=== PATIENT | male | born 1960 | race Caucasian/White ===

== ENCOUNTER 2019-02-01 10:39 | Observation (INO) ==
[2019-02-01] MEDS ORDERED: ZOFRAN INJ 4 MG VIAL IVP PRN (12:16)
[2019-02-01] MEDS ORDERED: PHENERGAN INJ 25 MG IM PRN (12:16)
[2019-02-01] MEDS ORDERED: NS 1000 ML 1,000 ML ONE (12:19)
[2019-02-01] MEDS ORDERED: NICOTINE PATCH ONE (12:19)
[2019-02-01] MEDS ORDERED: PEPCID 20 MG IV PREMIX* 20 MG/50 ML BAG ONE (12:19)
[2019-02-01] MEDS ORDERED: PROTONIX INJ 40 MG VIAL ONE (12:20)
[2019-02-01] MEDS: NICOTINE PATCH TD SCH (12:45)
[2019-02-01] MEDS: PROTONIX INJ 40 MG VIAL IVP SCH ×2 (12:46→20:24)
[2019-02-01] MEDS: NS 1000 ML 1,000 ML IV SCH ×2 (12:46→20:24)
[2019-02-01] MEDS: PEPCID 20 MG IV PREMIX* 20 MG/50 ML BAG IV SCH ×2 (12:46→20:25)
[2019-02-01] MEDS ORDERED: ATIVAN TAB 0.5 MG ONE (12:49)
[2019-02-01] MEDS: ATIVAN TAB 0.5 MG PO PRN ×3 (12:52→23:34)
[2019-02-01 13:06] VITALS: BMI 30.4
[2019-02-01 13:17] LABS: BASOPHILS # (AUTO) 0.1 X10^3/uL (0.0-0.1); BASOPHILS % (AUTO) 0.6 % (0.2-1.0); EOSINOPHILS # (AUTO) 0.1 x10^3/uL (0.0-0.2); EOSINOPHILS % (AUTO) 0.6 % (0.9-2.9); HEMATOCRIT 48.5 % (42.0-54.0); HEMOGLOBIN 16.9 g/dL (13.5-18.0); LYMPHOCYTES # (AUTO) 1.4 X10^3/uL (1.3-2.9); LYMPHOCYTES % (AUTO) 11.6 % (21.0-51.0); MEAN CORPUSCULAR HEMOGLOBIN 33.1 pg (27.0-34.0); MEAN CORPUSCULAR HGB CONC 34.8 g/dL (33.0-35.0); MEAN PLATELET VOLUME 9.6 fL (7.4-11.0); MONOCYTES # (AUTO) 0.9 x10^3/uL (0.3-0.8); MONOCYTES % (AUTO) 7.4 % (0.0-13.0); NEUTROPHILS # (AUTO) 9.8 x10^3/uL (2.2-4.8); NEUTROPHILS % (AUTO) 79.8 % (42.0-75.0); PLATELET COUNT 196 X10^3/uL (150.0-450.0); RED BLOOD COUNT 5.11 X10^6/uL (4.7-6.0); RED CELL DISTRIBUTION WIDTH 12.5 % (11.6-16.5); WHITE BLOOD COUNT 12.3 X10^3/uL (3.6-10.0)
[2019-02-01 13:25] LABS: ALANINE AMINOTRANSFERASE 40 Units/L (12-78); ALBUMIN 3.5 g/dL (3.4-5.0); ALKALINE PHOSPHATASE 116 Units/L (46-116); ASPARTATE AMINO TRANSFERASE 31 Units/L (15-37); BLOOD UREA NITROGEN 17 mg/dL (7-18); CALCIUM 9.1 mg/dL (8.5-10.1); CARBON DIOXIDE 26.8 mmol/L (21-32); CHLORIDE 99 mmol/L (98-107); COR NA(FOR HYPERGLY) 138 mmol/L (136-145); CREATININE 1.48 mg/dL (0.70-1.30); SODIUM 137 mmol/L (136-145); TOTAL PROTEIN 7.8 g/dL (6.4-8.2); eGFR NON BLACK RACES 52 (>60)
[2019-02-01 13:55] LABS: IRON 161 ug/dL (50-175)
[2019-02-01 13:56] LABS: ERYTHROCYTE SEDIMENTATION RATE 9 MM/HOUR (0-15)
[2019-02-01] MEDS ORDERED: METHYLPHENIDATE HCL 36 MG PO SCH (14:00)
[2019-02-01] MEDS ORDERED: METAXALONE 800 MG PO SCH (14:00)
[2019-02-01] MEDS: WELLBUTRIN SR 150 MG (BID) PO SCH ×2 (14:02→20:30)
[2019-02-01] MEDS: BENICAR TAB 40 MG PO SCH (14:43)
[2019-02-01] MEDS: HYDROCHLOROTHIAZIDE 12.5 MG CAP PO SCH (14:43)
[2019-02-01] MEDS ORDERED: HYDROCHLOROTHIAZIDE 12.5 MG CAP PO SCH (15:00)
[2019-02-01] MEDS ORDERED: BENICAR TAB 40 MG PO SCH (15:00)
--- NOTE | 2019-02-01 15:09 | RAD ---
History: Acute diffuse abdominal pain Study: KUB Comparison: None Findings: The bowel gas pattern is unremarkable. No abnormal calcification is demonstrated. No significant bony abnormality is demonstrated. Impression: Negative Reported By:
[2019-02-01 16:09] LABS: BILIRUBIN,URINE 1+ (NEGATIVE); BLOOD/HEMOGLOBIN,URINE NEGATIVE (NEGATIVE); GLUCOSE, URINE NEGATIVE (NEGATIVE); KETONES,URINE 1+ (NEGATIVE); LEUKOCYTE ESTERASE ,URINE 1+ (NEGATIVE); NITRITES,URINE NEGATIVE (NEGATIVE); PROTEIN,URINE 2+ (NEGATIVE); UROBILINOGEN,URINE NORMAL (NORMAL)
[2019-02-01] MEDS ORDERED: MIRALAX POWDER (255 GRAMS BTL) PO NR (16:11)
[2019-02-01] MEDS ORDERED: DULCOLAX SUPPOSITORY 10 MG RECTAL ONE (16:12)
[2019-02-01 16:16] LABS: APPEARANCE,URINE SLIGHTLY HAZY (CLEAR); COLOR,URINE AMBER (YELLOW)
[2019-02-01 16:17] LABS: AMORPHOUS SEDIMENT,UR 1+ /HPF (NEGATIVE); BACTERIA,URINE TRACE /HPF (NEGATIVE); HYALINE CASTS, URINE RARE /LPF (NEGATIVE); SQUAMOUS EPITHELIAL CELL,UR RARE /HPF (NEGATIVE)
--- NOTE | 2019-02-01 16:52 | DR.CONSULT ---
Consult - Consultation for Day of: Date: 02/01/19 - Chief Complaint Chief Complaint: GI Bleed, Patient with complaints of hematochezia, melena and LLQ pain. - History of Present Illness History of Present Illness: Patient is a 58yo male who was referred fot GI Bleed, Patient with complaints of hematochezia that went on for 1 week stopped on friday, melenax2-3 days and LLQ pain. Patient denies dysphagia, dyspepsia, nausea, vomiting, constipation and diarrhea. Hgb 16.9, Hct 48.5, BUN 17, Creatinine 1.48, CRP 8.0. Patient states he has never had a colonoscopy or EGD. Admits to drinking about a 6pack a day as well as wine and liquor every night. Smokes 1PPD. - Past Medical History Past Medical History: Anxiety, Depression, Dyslipidemia, Hypertension Additional Medical History: Hyperlipidemia - Past Surgical History Surgical History: Ortho Surgery, Tonsillectomy Additional Surgical History: Right knee, Left shoulder and Neck surgery - Family History Family Medical History: Diabetes Mellitus, Cancer, Sudden Cardiac - Social History Does patient currently use any type of tobacco product: Yes Have you used tobacco products in the last 12 months: Yes Type of Tobacco Use: Cigarettes How many years tobacco product used: 46 Packs per day or dips/chews per day: 1 Does any household member use tobacco: No Alcohol Use: DAILY (6pack a day, wine and liqour every night as well) Drug Use: None - Medications Home Medications: No Known Drug Allergies Allergy (Verified 02/01/19 12:52) CONTINUE taking the following medications budesonide-formoterol [Symbicort] 2 puff INHALATION BID PRN 02/01/19 [History] bupropion HCl 150 mg PO BID 02/01/19 [History] cetirizine [Zyrtec] 10 mg PO DAILY 02/01/19 [History] metaxalone [Skelaxin] 800 mg PO TID 02/01/19 [History] methylphenidate HCl [Concerta] 36 mg PO DAILY 02/01/19 [History] montelukast [Singulair] 10 mg PO HS 02/01/19 [History] olmesartan-hydrochlorothiazide [Benicar HCT] 1 tab PO DAILY 02/01/19 [History] omeprazole magnesium [Prilosec OTC] 20 mg PO DAILY 02/01/19 [History] royal jelly 1,000 mg PO DAILY 02/01/19 [History] sildenafil [Viagra] 100 mg PO PRN PRN 02/01/19 [History] zolpidem 10 mg PO HS 02/01/19 [History] - Review of Systems Gastrointestinal: Abdominal Pain (LLQ), Melena, Hematochezia. denies: Nausea, Vomiting, Diarrhea, Constipation - Physical Exam Vital Signs: Temperature 97.7 F Pulse Rate [Left Brachial] 116 Respiratory Rate 20 Blood Pressure [Left Arm] 131/81 O2 Sat by Pulse Oximetry 94 Oriented: Normal Eyes: Normal Ear: Normal Nose: Normal Throat: Normal Respiratory: Clear Throughout Cardiovascular: Normal Auscultation: Bowel Sounds: Normal Palpation: Normal, Other (no distention). negative: Spleen Enlarged, Liver Enlarged, Mass Pulsatile Tenderness: LLQ, Mild Skin: Normal Musculoskeletal: Normal Psychiatric: Normal Mood Description: Calm Affect: Normal Speech Pattern: Clear, Appropriate - Plan Plan: Assessment. 1. Melena r/o upper GI Bleed. 2. Hematochezia r/o diverticular bleed, no hematochezia since . Plan. 1. EGD in am, Monitor HGb, Transfuse as needed, Protonix IV, Hemoccult. 2. Colon on if pateint remains in hosiptal, if discharged will need to be done as outpatient. Plan reviewed with Dr. Cisneros - Allergies Allergies/Adverse Reactions: Allergies Allergy/AdvReac Type Severity Reaction Status Date / Time No Known Drug Allergies Allergy Verified 02/01/19 12:52
[2019-02-01] MEDS: PULMICORT NEB TX 0.5 MG NEB SCH (20:21)
[2019-02-01] MEDS: SINGULAIR TAB 10 MG PO SCH (20:25)
[2019-02-01] MEDS: AMBIEN PO PRN (20:25)
--- NOTE | 2019-02-01 21:53 | RAD ---
HISTORY: Preoperative exam for EGD Study: Single-view of the chest Comparison: None Findings: The patient is rotated. The cardiac silhouette is unremarkable. The lungs are clear without focal infiltrate or effusion. Postoperative changes of the cervical spine are partially visualized. IMPRESSION: 1. No acute cardiopulmonary disease. Reported By:
[2019-02-02] MEDS: NS 1000 ML 1,000 ML IV SCH ×3 (03:44→20:50)
[2019-02-02 06:02] LABS: ALANINE AMINOTRANSFERASE 33 Units/L (12-78); ALBUMIN 2.9 g/dL (3.4-5.0); ALKALINE PHOSPHATASE 89 Units/L (46-116); ASPARTATE AMINO TRANSFERASE 31 Units/L (15-37); BLOOD UREA NITROGEN 14 mg/dL (7-18); CALCIUM 7.9 mg/dL (8.5-10.1); CARBON DIOXIDE 25.7 mmol/L (21-32); CHLORIDE 102 mmol/L (98-107); COR CA(FOR HYPOALB) 8.8 mg/dL (8.5-10.1); SODIUM 138 mmol/L (136-145); TOTAL PROTEIN 6.4 g/dL (6.4-8.2); eGFR NON BLACK RACES > 60 (>60)
[2019-02-02 06:13] LABS: BASOPHILS # (AUTO) 0.1 X10^3/uL (0.0-0.1); BASOPHILS % (AUTO) 0.8 % (0.2-1.0); EOSINOPHILS # (AUTO) 0.1 x10^3/uL (0.0-0.2); EOSINOPHILS % (AUTO) 1.3 % (0.9-2.9); HEMATOCRIT 40.6 % (42.0-54.0); HEMOGLOBIN 14.1 g/dL (13.5-18.0); LYMPHOCYTES # (AUTO) 1.9 X10^3/uL (1.3-2.9); LYMPHOCYTES % (AUTO) 21.8 % (21.0-51.0); MEAN CORPUSCULAR HEMOGLOBIN 33.2 pg (27.0-34.0); MEAN CORPUSCULAR HGB CONC 34.8 g/dL (33.0-35.0); MEAN CORPUSCULAR VOLUME 95.5 fL (80.0-100.0); MEAN PLATELET VOLUME 9.8 fL (7.4-11.0); MONOCYTES # (AUTO) 0.8 x10^3/uL (0.3-0.8); MONOCYTES % (AUTO) 9.4 % (0.0-13.0); NEUTROPHILS # (AUTO) 5.9 x10^3/uL (2.2-4.8); NEUTROPHILS % (AUTO) 66.7 % (42.0-75.0); PLATELET COUNT 140 X10^3/uL (150.0-450.0); RED BLOOD COUNT 4.25 X10^6/uL (4.7-6.0); RED CELL DISTRIBUTION WIDTH 12.6 % (11.6-16.5); WHITE BLOOD COUNT 8.9 X10^3/uL (3.6-10.0)
[2019-02-02] MEDS ORDERED: MICRO K EXTEN CAP 10 MEQ PO PRN (06:15)
[2019-02-02] MEDS ORDERED: POTASSIUM CHL 60 MEQ/NS 0.45% 500 ML IV PRN (06:15)
[2019-02-02] MEDS ORDERED: KLOR-CON PO PRN (06:15)
[2019-02-02] MEDS ORDERED: K-DUR TAB 20 MEQ PO PRN (06:15)
[2019-02-02] MEDS ORDERED: POTASSIUM CHLORIDE LIQ 20 MEQ UDC PO PRN (06:15)
[2019-02-02] MEDS ORDERED: POTASSIUM CHL 40 MEQ/NS 0.45% 500 ML IV PRN (06:15)
[2019-02-02] MEDS: K-RIDER 10 MEQ/NS 100 ML 10 MEQ/100 ML BAG IV PRN ×2 (06:33→17:20)
[2019-02-02] MEDS: MAGNESIUM SULFATE 1 GRAM/100 mL PREMIX 1 GM/100 ML BAG IV PRN ×5 (08:09→12:15)
[2019-02-02] MEDS: HYDROCHLOROTHIAZIDE 12.5 MG CAP PO SCH ×2 (08:29→15:30)
[2019-02-02] MEDS: BENICAR TAB 40 MG PO SCH ×2 (08:29→15:30)
[2019-02-02] MEDS: WELLBUTRIN SR 150 MG (BID) PO SCH ×2 (08:29→20:49)
[2019-02-02] MEDS: PEPCID 20 MG IV PREMIX* 20 MG/50 ML BAG IV SCH ×3 (08:29→20:48)
[2019-02-02] MEDS: NICOTINE PATCH TD SCH (08:48)
[2019-02-02] MEDS: PROTONIX INJ 40 MG VIAL IVP SCH ×2 (08:48→20:49)
[2019-02-02] MEDS: PULMICORT NEB TX 0.5 MG NEB SCH ×2 (09:02→20:50)
[2019-02-02] MEDS ORDERED: STERILE WATER IRRIGATION ONE (12:55)
[2019-02-02] MEDS: ZyrTEC TAB 10 MG PO SCH (12:59)
--- NOTE | 2019-02-02 13:11 | DR.UPDATE ---
H&P Update History and Physical Update: WAS SEEN IN THE OFFICE BY JOSE BAUER YESTERDAY FOR COMPLAINTS OF RECTAL BLEEDING AND BLACK, TARRY STOOLS X 1 WEEK. HE ALSO REPORTED ABDOMINAL PAIN. HE WAS ADMITTED FOR FURTHER EVALUATION AND TREATMENT OF GI BLEED AND ABDOMINAL PAIN. ON ADMISSION, WE WILL OBTAIN LABS, KUB, HEMOCCULT STOOLS, AND C ONSULT GI. A H&P WAS COMPLETED PRIOR TO ADMISSION. PATIENT HAS BEEN SEEN AND EXAMINED WITH NO CHANGES NOTED TO H&P.
[2019-02-02] MEDS ORDERED: DIPRIVAN VIAL 20 ML ONE (13:55)
[2019-02-02] MEDS ORDERED: NS 500 ML IV 500 ML ONE (13:57)
[2019-02-02] MEDS: ATIVAN TAB 0.5 MG PO PRN ×2 (17:01→22:23)
[2019-02-02] MEDS: SINGULAIR TAB 10 MG PO SCH (20:49)
[2019-02-02] MEDS: AMBIEN PO PRN (20:49)
[2019-02-02] MEDS ORDERED: PHENERGAN INJ 25 MG IM PRN (20:59)
[2019-02-02] MEDS: NORCO 5/325 MG TAB PO PRN (21:38)
--- NOTE | 2019-02-02 22:07 | PCM.PROG ---
Progress Note - Progress Note for Day of Date of Exam: 02/02/19 - Subjective Subjective: WAS ADMITTED FOR ABDOMINAL PAIN AND BLOOD IN STOOL. TODAY, HE IS ALERT AND OREINTED, LYING IN BED ON MORNING ROUNDS. HE CONTINUES WITH ABDOMINAL PAIN. ON EXAMINATION, HEART IS REGULAR IN RATE AND RHYTHM. BILATERAL LUNGS ARE NOTED WITH DIMINISHED LUNG SOUNDS THROUGHOUT. ABDOMEN IS ROUND, SOFT, AND NOTED WITH DIFFUSE TENDERNESS THROUGHOUT. NORMAL BOWEL SOUNDS ARE NOTED IN ALL QUADRANTS. HIS VITALS THIS MORNING ARE 98.0-102-20-96%-140/72. LABS WERE OBTAINED. ABNORMAL LAB VALUES INCLUDE THE FOLLOWIN.0-102-20-96%-140/72. LABS WERE OBTAINED. ABNORMAL LAB VALUES INCLUDE THE FOLLOWING: RBC 4.25, HCT 40.6, POTASSIUM 3.4, GLUCOSE 102, CALCIUM 7.9, MAGNESIUM 1.0, ALBUMIN 2.9. STOOL POSITIVE FOR OCCULT BLOOD. HE IS CURRENTLY RECEIVING IV FLUIDS, IV PEPCID, AND IV PROTONIX. WE CONSULTED FOR EGD/COLONOSCOPY. WE WILL CONTINUE WITH CURRENT PLAN OF CARE TODAY. OTHERWISE, WE WILL FOLLOW UP WITH AM LABS AND CONTINUE TO MONITOR. - Past Medical Family Social History Past Med/Fam/Surg Hx: No changes since H&P Allergies: Allergies No Known Drug Allergies Allergy (Verified 02/01/19 12:52) - Review of Systems ROS: No change since H&P - Vital Signs and I&O's Vital Signs: Temperature 97.7 F Pulse Rate [Left Brachial] 100 Pulse Rate 88 Respiratory Rate 20 Blood Pressure [Left Arm] 138/72 O2 Sat by Pulse Oximetry 96 Intake and Output: Intake & Output 01/31/19 02/01/19 02/02/19 02/03/19 11:59 11:59 11:59 11:59 Intake Total 2130 / 2130 0 / 0 Output Total 250 / 250 Balance 1880 / 1880 0 / 0 - Physical Exam Oriented: Normal Eyes: Normal Ear: Normal Nose: Normal Throat: Normal Respiratory: Generalized, Diminished Cardiovascular: Normal : Normal Auscultation: Bowel Sounds: Normal Palpation: Normal Tenderness: Diffuse, LLQ, Mild Skin: Normal Musculoskeletal: Normal Psychiatric: Normal Mood Description: Calm Affect: Normal Speech Pattern: Clear, Appropriate - Laboratory and Diagnostics Result Diagrams: 02/02/19 05:20 02/02/19 20:35 Labs: Laboratory WBC 8.9 X10^3/uL (3.6-10.0) 02/02/19 05:20 RBC 4.25 X10^6/uL (4.7-6.0) L 02/02/19 05:20 Hgb 14.1 g/dL (13.5-18.0) D 02/02/19 05:20 Hct 40.6 % (42.0-54.0) L 02/02/19 05:20 MCV 95.5 fL (80.0-100.0) 02/02/19 05:20 MCH 33.2 pg (27.0-34.0) 02/02/19 05:20 MCHC 34.8 g/dL (33.0-35.0) 02/02/19 05:20 RDW 12.6 % (11.6-16.5) 02/02/19 05:20 Plt Count 140 X10^3/uL (150.0-450.0) L 02/02/19 05:20 MPV 9.8 fL (7.4-11.0) 02/02/19 05:20 Neut % (Auto) 66.7 % (42.0-75.0) 02/02/19 05:20 Lymph % (Auto) 21.8 % (21.0-51.0) 02/02/19 05:20 Gage % (Auto) 9.4 % (0.0-13.0) 02/02/19 05:20 Eos % (Auto) 1.3 % (0.9-2.9) 02/02/19 05:20 Baso % (Auto) 0.8 % (0.2-1.0) 02/02/19 05:20 Neut # (Auto) 5.9 x10^3/uL (2.2-4.8) H 02/02/19 05:20 Lymph # (Auto) 1.9 X10^3/uL (1.3-2.9) 02/02/19 05:20 Gage # (Auto) 0.8 x10^3/uL (0.3-0.8) 02/02/19 05:20 Eos # (Auto) 0.1 x10^3/uL (0.0-0.2) 02/02/19 05:20 Baso # (Auto) 0.1 X10^3/uL (0.0-0.1) 02/02/19 05:20 Absolute Nucleated RBC 0.0 /100WBC 02/02/19 05:20 ESR 9 MM/HOUR (0-15) 02/01/19 13:01 INR Target Range - 02/01/19 13:01 INR 0.92 (0.8-1.3) 02/01/19 13:01 Sodium 138 mmol/L (136-145) 02/02/19 05:20 Corrected Sodium TNP 02/02/19 05:20 Potassium 3.4 mmol/L (3.5-5.1) L 02/02/19 20:35 Chloride 102 mmol/L (98-107) 02/02/19 05:20 Carbon Dioxide 25.7 mmol/L (21-32) 02/02/19 05:20 BUN 14 mg/dL (7-18) 02/02/19 05:20 Creatinine 1.20 mg/dL (0.70-1.30) 02/02/19 05:20 Est GFR (MDRD) Af Amer > 60 (>60) 02/02/19 05:20 Est GFR (MDRD) Non-Af > 60 (>60) 02/02/19 05:20 Glucose 102 mg/dL (65-99) H 02/02/19 05:20 Calcium 7.9 mg/dL (8.5-10.1) L 02/02/19 05:20 Corrected Calcium 8.8 mg/dL (8.5-10.1) 02/02/19 05:20 Magnesium 1.0 mg/dL (1.7-2.9) L 02/02/19 05:20 Iron 161 ug/dL (50-175) 02/01/19 13:01 Transferrin 276 mg/dL (202-364) 02/01/19 13:01 Ferritin 281 ng/mL (26-388) 02/01/19 13:01 Total Bilirubin 0.70 mg/dL (0.2-1.0) 02/02/19 05:20 AST 31 Units/L (15-37) 02/02/19 05:20 ALT 33 Units/L (12-78) 02/02/19 05:20 Alkaline Phosphatase 89 Units/L (46-116) 02/02/19 05:20 C-Reactive Protein 8.00 mg/L (0-3.0) H 02/01/19 13:01 Total Protein 6.4 g/dL (6.4-8.2) 02/02/19 05:20 Albumin 2.9 g/dL (3.4-5.0) L 02/02/19 05:20 Globulin 3.5 g/dL (2.5-4.5) 02/02/19 05:20 Albumin/Globulin Ratio 0.8 Ratio (1.1-2.1) L 02/02/19 05:20 Vitamin B12 591 pg/mL (193-986) 02/01/19 13:01 Folate 7.4 ng/mL (>8.6) L 02/01/19 13:01 Specimen Type Clean catch urine 02/01/19 15:50 Urine Color [place]ie (YELLOW) 02/01/19 15:50 Urine Appearance Slightly hazy (CLEAR) 02/01/19 15:50 Urine pH 5.0 (5.0 - 8.0) 02/01/19 15:50 Ur Specific [place] 1.015 (1.000-1.030) 02/01/19 15:50 Urine Protein 2+ (NEGATIVE) 02/01/19 15:50 Urine Glucose (UA) Negative (NEGATIVE) 02/01/19 15:50 Urine Ketones 1+ (NEGATIVE) 02/01/19 15:50 Urine Occult Blood Negative (NEGATIVE) 02/01/19 15:50 Urine Nitrite Negative (NEGATIVE) 02/01/19 15:50 Urine Bilirubin 1+ (NEGATIVE) 02/01/19 15:50 Urine Urobilinogen Normal (NORMAL) 02/01/19 15:50 Ur Leukocyte Esterase 1+ (NEGATIVE) 02/01/19 15:50 Urine RBC 3-5 /HPF (NONE SEEN) 02/01/19 15:50 Urine WBC 3-5 /HPF (NONE SEEN) 02/01/19 15:50 Ur Squamous Epith Cells Rare /HPF (NEGATIVE) 02/01/19 15:50 Amorphous Sediment 1+ /HPF (NEGATIVE) 02/01/19 15:50 Urine Bacteria Trace /HPF (NEGATIVE) 02/01/19 15:50 Hyaline Casts Rare /LPF (NEGATIVE) 02/01/19 15:50 Ur Culture Indicated? No/not indicated 02/01/19 15:50 Stool Description 30 g liquid brn stoo 02/02/19 06:12 Stl Occult Blood (IFOB) Negative (NEGATIVE) 02/02/19 06:12 Tissue Pathology To follow 02/02/19 14:15 - Plan (1) GI bleed Status: Acute Qualifiers: GI bleed type/associated pathology: unspecified gastrointestinal hemorrhage type Qualified Code(s): K92.2 - Gastrointestinal hemorrhage, unspecified Plan: EGD TODAY, CONTINUE PEPCID, PROTONIX, CONTINUE TO MONITOR (2) Abdominal pain Status: Acute Qualifiers: Abdominal location: generalized Qualified Code(s): R10.84 - Generalized abdominal pain
[2019-02-03] MEDS: NS 1000 ML 1,000 ML IV SCH ×4 (04:18→21:28)
[2019-02-03 06:07] LABS: BASOPHILS # (AUTO) 0.1 X10^3/uL (0.0-0.1); BASOPHILS % (AUTO) 0.6 % (0.2-1.0); EOSINOPHILS # (AUTO) 0.1 x10^3/uL (0.0-0.2); EOSINOPHILS % (AUTO) 1.2 % (0.9-2.9); HEMATOCRIT 39.2 % (42.0-54.0); HEMOGLOBIN 13.7 g/dL (13.5-18.0); LYMPHOCYTES # (AUTO) 1.4 X10^3/uL (1.3-2.9); LYMPHOCYTES % (AUTO) 16.9 % (21.0-51.0); MEAN CORPUSCULAR HEMOGLOBIN 33.2 pg (27.0-34.0); MEAN CORPUSCULAR HGB CONC 34.9 g/dL (33.0-35.0); MEAN CORPUSCULAR VOLUME 95.3 fL (80.0-100.0); MEAN PLATELET VOLUME 10.7 fL (7.4-11.0); MONOCYTES # (AUTO) 0.7 x10^3/uL (0.3-0.8); MONOCYTES % (AUTO) 8.4 % (0.0-13.0); NEUTROPHILS # (AUTO) 5.9 x10^3/uL (2.2-4.8); NEUTROPHILS % (AUTO) 72.9 % (42.0-75.0); PLATELET COUNT 118 X10^3/uL (150.0-450.0); RED BLOOD COUNT 4.12 X10^6/uL (4.7-6.0); RED CELL DISTRIBUTION WIDTH 12.6 % (11.6-16.5); WHITE BLOOD COUNT 8.1 X10^3/uL (3.6-10.0)
[2019-02-03 06:30] LABS: ALANINE AMINOTRANSFERASE 42 Units/L (12-78); ALBUMIN 3.1 g/dL (3.4-5.0); ALKALINE PHOSPHATASE 87 Units/L (46-116); ASPARTATE AMINO TRANSFERASE 43 Units/L (15-37); BLOOD UREA NITROGEN 9 mg/dL (7-18); CALCIUM 7.6 mg/dL (8.5-10.1); CARBON DIOXIDE 26.8 mmol/L (21-32); CHLORIDE 104 mmol/L (98-107); COR CA(FOR HYPOALB) 8.3 mg/dL (8.5-10.1); CREATININE 1.18 mg/dL (0.70-1.30); MAGNESIUM 1.9 mg/dL (1.7-2.9); SODIUM 138 mmol/L (136-145); TOTAL PROTEIN 6.6 g/dL (6.4-8.2); eGFR NON BLACK RACES > 60 (>60)
[2019-02-03] MEDS: PULMICORT NEB TX 0.5 MG NEB SCH ×2 (08:51→20:50)
[2019-02-03] MEDS: PEPCID 20 MG IV PREMIX* 20 MG/50 ML BAG IV SCH ×2 (09:12→21:27)
[2019-02-03] MEDS: BENICAR TAB 40 MG PO SCH (09:12)
[2019-02-03] MEDS: WELLBUTRIN SR 150 MG (BID) PO SCH ×2 (09:12→21:27)
[2019-02-03] MEDS: ZyrTEC TAB 10 MG PO SCH (09:13)
[2019-02-03] MEDS: HYDROCHLOROTHIAZIDE 12.5 MG CAP PO SCH (09:13)
[2019-02-03] MEDS: PROTONIX INJ 40 MG VIAL IVP SCH ×2 (09:13→21:28)
[2019-02-03] MEDS: NICOTINE PATCH TD SCH (09:13)
[2019-02-03] MEDS ORDERED: MIRALAX POWDER (255 GRAMS BTL) PO NR (12:00)
[2019-02-03] MEDS ORDERED: DEMEROL INJ IVP PRN (12:04)
[2019-02-03] MEDS: DULCOLAX TAB EC 5 MG PO SCH ×2 (13:28→21:26)
[2019-02-03] MEDS: NORCO 5/325 MG TAB PO PRN (19:42)
--- NOTE | 2019-02-03 20:58 | PCM.PROG ---
Progress Note - Progress Note for Day of Date of Exam: 02/03/19 - Subjective Subjective: WAS ADMITTED FOR ABDOMINAL PAIN AND BLOOD IN STOOL. TODAY, HE IS ALERT AND OREINTED, LYING IN BED ON MORNING ROUNDS. HE CONTINUES WITH ABDOMINAL PAIN. HE ALSO REPORTS PAIN TO BILATERAL KNEES. ON EXAMINATION, HEART IS REGULAR IN RATE AND RHYTHM. BILATERAL LUNGS ARE NOTED WITH DIMINISHED LUNG SOUNDS THROUGHOUT. ABDOMEN IS ROUND, SOFT, AND NOTED WITH DIFFUSE TENDERNESS THROUGHOUT. NORMAL BOWEL SOUNDS ARE NOTED IN ALL QUADRANTS. HIS VITALS THIS MORNING ARE 98.1-95-20-95%-141/80. LABS WERE OBTAINED. ABNORMAL LAB VALUES INCLUDE THE FOLLOWING: RBC 4.12, HCT 39.2, GLUCOSE 104, CALCIUM 7.6, AST 43, ALBUMIN 3.1. STOOL POSITIVE FOR OCCULT BLOOD. HE IS CURRENTLY RECEIVING IV FLUIDS, IV PEPCID, AND IV PROTONIX. TOOK PATIENT TO THE OR YESTERDAY FOR AN EGD. FINDINGS INCLUDED: TWO ESOPHAGEAL ULCERS BOTH WITH CLEAN WHITE BASES. DUODENAL BULB ULCER. SEVER DUODENITIS. MODERATELY SEVERE EROSIVE GASTRITIS. HE RECOMMENDED PROTONIX 40MG IV BID AND WILL PERFORM A COLONOSCOPY TOMORROW. TODAY, WE WILL START DEMEROL 25MG IV Q4H PRN. OTHERWISE, WE WILL CONTINUE WITH CURRENT PLAN OF CARE TODAY. WE WILL FOLLOW UP WITH AM LABS AND CONTINUE TO MONITOR. - Past Medical Family Social History Past Med/Fam/Surg Hx: No changes since H&P Allergies: Allergies No Known Drug Allergies Allergy (Verified 02/01/19 12:52) - Review of Systems ROS: No change since H&P - Vital Signs and I&O's Vital Signs: Temperature 97.8 F Pulse Rate [Left Brachial] 92 Pulse Rate 88 Respiratory Rate 19 Blood Pressure [Left Arm] 128/75 O2 Sat by Pulse Oximetry 97 Intake and Output: Intake & Output 02/01/19 02/02/19 02/03/19 02/04/19 11:59 11:59 11:59 11:59 Intake Total 2130 / 2130 1680 / 1680 1360 / 1360 Output Total 250 / 250 Balance 1880 / 1880 1680 / 1680 1360 / 1360 - Physical Exam Oriented: Normal Eyes: Normal Ear: Normal Nose: Normal Throat: Normal Respiratory: Generalized, Diminished Cardiovascular: Normal : Normal Auscultation: Bowel Sounds: Normal Palpation: Normal Tenderness: Diffuse, LLQ, Mild Skin: Normal Musculoskeletal: Normal Psychiatric: Normal Mood Description: Calm Affect: Normal Speech Pattern: Clear, Appropriate - Laboratory and Diagnostics Result Diagrams: 02/03/19 05:42 02/03/19 05:42 Labs: Laboratory WBC 8.1 X10^3/uL (3.6-10.0) 02/03/19 05:42 RBC 4.12 X10^6/uL (4.7-6.0) L 02/03/19 05:42 Hgb 13.7 g/dL (13.5-18.0) 02/03/19 05:42 Hct 39.2 % (42.0-54.0) L 02/03/19 05:42 MCV 95.3 fL (80.0-100.0) 02/03/19 05:42 MCH 33.2 pg (27.0-34.0) 02/03/19 05:42 MCHC 34.9 g/dL (33.0-35.0) 02/03/19 05:42 RDW 12.6 % (11.6-16.5) 02/03/19 05:42 Plt Count 118 X10^3/uL (150.0-450.0) L 02/03/19 05:42 MPV 10.7 fL (7.4-11.0) 02/03/19 05:42 Neut % (Auto) 72.9 % (42.0-75.0) 02/03/19 05:42 Lymph % (Auto) 16.9 % (21.0-51.0) L 02/03/19 05:42 [place] % (Auto) 8.4 % (0.0-13.0) 02/03/19 05:42 Eos % (Auto) 1.2 % (0.9-2.9) 02/03/19 05:42 Baso % (Auto) 0.6 % (0.2-1.0) 02/03/19 05:42 Neut # (Auto) 5.9 x10^3/uL (2.2-4.8) H 02/03/19 05:42 Lymph # (Auto) 1.4 X10^3/uL (1.3-2.9) 02/03/19 05:42 [place] # (Auto) 0.7 x10^3/uL (0.3-0.8) 02/03/19 05:42 Eos # (Auto) 0.1 x10^3/uL (0.0-0.2) 02/03/19 05:42 Baso # (Auto) 0.1 X10^3/uL (0.0-0.1) 02/03/19 05:42 Absolute Nucleated RBC 0.1 /100WBC 02/03/19 05:42 ESR 9 MM/HOUR (0-15) 02/01/19 13:01 INR Target Range - 02/01/19 13:01 INR 0.92 (0.8-1.3) 02/01/19 13:01 Sodium 138 mmol/L (136-145) 02/03/19 05:42 Corrected Sodium TNP 02/03/19 05:42 Potassium 3.8 mmol/L (3.5-5.1) 02/03/19 05:42 Chloride 104 mmol/L (98-107) 02/03/19 05:42 Carbon Dioxide 26.8 mmol/L (21-32) 02/03/19 05:42 BUN 9 mg/dL (7-18) 02/03/19 05:42 Creatinine 1.18 mg/dL (0.70-1.30) 02/03/19 05:42 Est GFR (MDRD) Af Amer > 60 (>60) 02/03/19 05:42 Est GFR (MDRD) Non-Af > 60 (>60) 02/03/19 05:42 Glucose 104 mg/dL (65-99) H 02/03/19 05:42 Calcium 7.6 mg/dL (8.5-10.1) L 02/03/19 05:42 Corrected Calcium 8.3 mg/dL (8.5-10.1) L 02/03/19 05:42 Magnesium 1.9 mg/dL (1.7-2.9) 02/03/19 05:42 Iron 161 ug/dL (50-175) 02/01/19 13:01 Transferrin 276 mg/dL (202-364) 02/01/19 13:01 Ferritin 281 ng/mL (26-388) 02/01/19 13:01 Total Bilirubin 0.50 mg/dL (0.2-1.0) 02/03/19 05:42 AST 43 Units/L (15-37) H 02/03/19 05:42 ALT 42 Units/L (12-78) 02/03/19 05:42 Alkaline Phosphatase 87 Units/L (46-116) 02/03/19 05:42 C-Reactive Protein 8.00 mg/L (0-3.0) H 02/01/19 13:01 Total Protein 6.6 g/dL (6.4-8.2) 02/03/19 05:42 Albumin 3.1 g/dL (3.4-5.0) L 02/03/19 05:42 Globulin 3.5 g/dL (2.5-4.5) 02/03/19 05:42 Albumin/Globulin Ratio 0.9 Ratio (1.1-2.1) L 02/03/19 05:42 Vitamin B12 591 pg/mL (193-986) 02/01/19 13:01 Folate 7.4 ng/mL (>8.6) L 02/01/19 13:01 Specimen Type Clean catch urine 02/01/19 15:50 Urine Color [place] (YELLOW) 02/01/19 15:50 Urine Appearance Slightly hazy (CLEAR) 02/01/19 15:50 Urine pH 5.0 (5.0 - 8.0) 02/01/19 15:50 Ur Specific [place] 1.015 (1.000-1.030) 02/01/19 15:50 Urine Protein 2+ (NEGATIVE) 02/01/19 15:50 Urine Glucose (UA) Negative (NEGATIVE) 02/01/19 15:50 Urine Ketones 1+ (NEGATIVE) 02/01/19 15:50 Urine Occult Blood Negative (NEGATIVE) 02/01/19 15:50 Urine Nitrite Negative (NEGATIVE) 02/01/19 15:50 Urine Bilirubin 1+ (NEGATIVE) 02/01/19 15:50 Urine Urobilinogen Normal (NORMAL) 02/01/19 15:50 Ur Leukocyte Esterase 1+ (NEGATIVE) 02/01/19 15:50 Urine RBC 3-5 /HPF (NONE SEEN) 02/01/19 15:50 Urine WBC 3-5 /HPF (NONE SEEN) 02/01/19 15:50 Ur Squamous Epith Cells Rare /HPF (NEGATIVE) 02/01/19 15:50 Amorphous Sediment 1+ /HPF (NEGATIVE) 02/01/19 15:50 Urine Bacteria Trace /HPF (NEGATIVE) 02/01/19 15:50 Hyaline Casts Rare /LPF (NEGATIVE) 02/01/19 15:50 Ur Culture Indicated? No/not indicated 02/01/19 15:50 Stool Description 15 g. 02/03/19 06:13 Stl Occult Blood (IFOB) Positive (NEGATIVE) A 02/03/19 06:13 Tissue Pathology To follow 02/02/19 14:15 - Plan (1) GI bleed Status: Acute Qualifiers: GI bleed type/associated pathology: unspecified gastrointestinal hemorrhage type Qualified Code(s): K92.2 - Gastrointestinal hemorrhage, unspecified Plan: EGD TODAY, CONTINUE PEPCID, PROTONIX, CONTINUE TO MONITOR (2) Abdominal pain Status: Acute Qualifiers: Abdominal location: generalized Qualified Code(s): R10.84 - Generalized abdominal pain
[2019-02-03] MEDS: AMBIEN PO PRN (21:27)
[2019-02-03] MEDS: ATIVAN TAB 0.5 MG PO PRN (21:27)
[2019-02-03] MEDS: SINGULAIR TAB 10 MG PO SCH (21:27)
[2019-02-04] MEDS: NS 1000 ML 1,000 ML IV SCH ×2 (05:56→12:32)
[2019-02-04 06:10] LABS: BASOPHILS % (AUTO) 0.5 % (0.2-1.0); EOSINOPHILS # (AUTO) 0.1 x10^3/uL (0.0-0.2); EOSINOPHILS % (AUTO) 1.6 % (0.9-2.9); HEMATOCRIT 37.9 % (42.0-54.0); HEMOGLOBIN 13.2 g/dL (13.5-18.0); LYMPHOCYTES # (AUTO) 1.4 X10^3/uL (1.3-2.9); LYMPHOCYTES % (AUTO) 16.4 % (21.0-51.0); MEAN CORPUSCULAR HEMOGLOBIN 33.4 pg (27.0-34.0); MEAN CORPUSCULAR HGB CONC 34.8 g/dL (33.0-35.0); MEAN PLATELET VOLUME 9.5 fL (7.4-11.0); MONOCYTES # (AUTO) 0.8 x10^3/uL (0.3-0.8); MONOCYTES % (AUTO) 9.1 % (0.0-13.0); NEUTROPHILS # (AUTO) 6.2 x10^3/uL (2.2-4.8); NEUTROPHILS % (AUTO) 72.4 % (42.0-75.0); PLATELET COUNT 127 X10^3/uL (150.0-450.0); RED BLOOD COUNT 3.95 X10^6/uL (4.7-6.0); RED CELL DISTRIBUTION WIDTH 12.5 % (11.6-16.5); WHITE BLOOD COUNT 8.5 X10^3/uL (3.6-10.0)
[2019-02-04 06:25] LABS: ALANINE AMINOTRANSFERASE 48 Units/L (12-78); ALBUMIN 2.9 g/dL (3.4-5.0); ALKALINE PHOSPHATASE 82 Units/L (46-116); ASPARTATE AMINO TRANSFERASE 46 Units/L (15-37); BLOOD UREA NITROGEN 5 mg/dL (7-18); CALCIUM 7.7 mg/dL (8.5-10.1); CARBON DIOXIDE 23.6 mmol/L (21-32); CHLORIDE 105 mmol/L (98-107); COR CA(FOR HYPOALB) 8.6 mg/dL (8.5-10.1); CREATININE 1.06 mg/dL (0.70-1.30); SODIUM 139 mmol/L (136-145); TOTAL PROTEIN 6.4 g/dL (6.4-8.2); eGFR NON BLACK RACES > 60 (>60)
[2019-02-04] MEDS: PULMICORT NEB TX 0.5 MG NEB SCH (08:25)
[2019-02-04] MEDS: HYDROCHLOROTHIAZIDE 12.5 MG CAP PO SCH (09:58)
[2019-02-04] MEDS: DULCOLAX TAB EC 5 MG PO SCH (09:58)
[2019-02-04] MEDS: BENICAR TAB 40 MG PO SCH (09:58)
[2019-02-04] MEDS: NICOTINE PATCH TD SCH (09:58)
[2019-02-04] MEDS ORDERED: DIPRIVAN VIAL 20 ML ONE (13:06)
[2019-02-04] MEDS ORDERED: DIPRIVAN VIAL 10 ML ONE ×4 (13:19→13:22)
[2019-02-04] MEDS ORDERED: STERILE WATER IRRIGATION ONE (13:59)
[2019-02-04 16:37] VITALS: BP 166/89
--- NOTE | 2019-02-04 16:42 | CT ---
CT OF THE ABDOMEN AND PELVIS WITH CONTRAST HISTORY: Upper abdominal pain Comparison: None Technique: Multiple axial images of the abdomen and pelvis were obtained from the lung bases to the pubic symphysis follow the administration of IV contrast as well as oral contrast. Dose reduction techniques including Automated Exposure Control (AEC) and adjustment of mA and kV were utlized. Findings: The heart is normal in size. There is no pericardial effusion. Lung bases are clear without focal consolidation, pleural effusion or pneumothorax. Liver and spleen are normal in size, enhancement characteristics and contour. No focal lesions. The portal vein is patent. No ductal dilitation. Gallbladder is present. No calcified gallstones or gallbladder wall thickening. The pancreas is unremarkable. Adrenal glands are normal. Kidneys enhance symmetrically without hydronephrosis or nephrolithiasis. No bowel obstruction or inflammation. Normal appendix. Diverticulosis without definite focal diverticular inflammation No abnormal appearing mesenteric or retroperitoneal lymph nodes. No free fluid or fluid collections. The bladder is normal in appearance. Prostate unremarkable. No free fluid or abnormal pelvic lymph nodes. No aggressive osseous lesions. IMPRESSION: 1. No source of patient's upper abdominal pain is identified on this examination. 2. Diverticulosis without focal diverticular inflammation. Reported By:
[2019-02-04] MEDS: PROTONIX INJ 40 MG VIAL IVP SCH (16:43)
[2019-02-04] MEDS: ZyrTEC TAB 10 MG PO SCH (16:44)
[2019-02-04] MEDS: PEPCID 20 MG IV PREMIX* 20 MG/50 ML BAG IV SCH (16:44)
[2019-02-04] MEDS: WELLBUTRIN SR 150 MG (BID) PO SCH (16:44)
== END 2019-02-04 17:10 | disposition home or self-care (01) ==
LOC: MED/SURG
PROVIDERS: ADMIT Internal Medicine; ATTEND Internal Medicine
DX: K26.9 Duodenal ulcer, unspecified as acute or chronic, without hemorrhage or perforation; R53.83 Other fatigue; R10.84 Generalized abdominal pain; K22.10 Ulcer of esophagus without bleeding; Z12.11 Encounter for screening for malignant neoplasm of colon; K64.8 Other hemorrhoids; K62.1 Rectal polyp; K57.30 Diverticulosis of large intestine without perforation or abscess without bleeding; K63.5 Polyp of colon; R79.82 Elevated C-reactive protein (CRP); K92.1 Melena; K29.00 Acute gastritis without bleeding; R97.0 Elevated carcinoembryonic antigen [CEA]; F10.21 Alcohol dependence, in remission
CPT/HCPCS: 36415; 71010; 71045; 74000; 74018; 74177; 80053; 81001; 82270; 82378; 82607; 82728; 82746; 83540; 83735; 84132; 84466; 85025; 85610; 85652; 86140; 93005; 94640; 94760; 96367; 96374; A4217; A4222; C9113; S0028; S0106; G0378; J2175; J2704; J3475; J3480; J7030; J7040; J7626

== ENCOUNTER 2020-01-21 15:50 | Observation (INO) ==
[2020-01-21] MEDS ORDERED: NS 1000 ML 1,000 ML ONE (16:18)
[2020-01-21 16:19] LABS: BASOPHILS # (AUTO) 0.1 X10^3/uL (0.0-0.1); EOSINOPHILS # (AUTO) 0.1 x10^3/uL (0.0-0.2); EOSINOPHILS % (AUTO) 0.7 % (0.9-2.9); HEMATOCRIT 39.6 % (42.0-54.0); HEMOGLOBIN 13.9 g/dL (13.5-18.0); LYMPHOCYTES # (AUTO) 1.2 X10^3/uL (1.3-2.9); LYMPHOCYTES % (AUTO) 14.9 % (21.0-51.0); MEAN CORPUSCULAR HEMOGLOBIN 32.1 pg (27.0-34.0); MEAN CORPUSCULAR HGB CONC 35.1 g/dL (33.0-35.0); MEAN CORPUSCULAR VOLUME 91.4 fL (80.0-100.0); MEAN PLATELET VOLUME 9.3 fL (7.4-11.0); MONOCYTES # (AUTO) 0.8 x10^3/uL (0.3-0.8); MONOCYTES % (AUTO) 9.1 % (0.0-13.0); NEUTROPHILS # (AUTO) 6.1 x10^3/uL (2.2-4.8); NEUTROPHILS % (AUTO) 74.3 % (42.0-75.0); PLATELET COUNT 312 X10^3/uL (150.0-450.0); RED BLOOD COUNT 4.33 X10^6/uL (4.7-6.0); RED CELL DISTRIBUTION WIDTH 12.6 % (11.6-16.5); WHITE BLOOD COUNT 8.3 X10^3/uL (3.6-10.0)
[2020-01-21] MEDS: NS 1000 ML 1,000 ML IV SCH ×2 (16:28→23:32)
[2020-01-21 17:05] LABS: ALANINE AMINOTRANSFERASE 37 Units/L (12-78); ALBUMIN 3.2 g/dL (3.4-5.0); ALKALINE PHOSPHATASE 53 Units/L (46-116); ASPARTATE AMINO TRANSFERASE 31 Units/L (15-37); BLOOD UREA NITROGEN 90 mg/dL (7-18); CALCIUM 8.8 mg/dL (8.5-10.1); CARBON DIOXIDE 23.3 mmol/L (21-32); CHLORIDE 95 mmol/L (98-107); CKMB % 1.7 % (<4); COR CA(FOR HYPOALB) 9.4 mg/dL (8.5-10.1); COR NA(FOR HYPERGLY) 132 mmol/L (136-145); CREATINE KINASE 245 Units/L (39-308); CREATININE 2.83 mg/dL (0.70-1.30); MAGNESIUM 1.8 mg/dL (1.7-2.9); SODIUM 131 mmol/L (136-145); TOTAL PROTEIN 8.4 g/dL (6.4-8.2); TROPONIN I < 0.02 ng/mL (0-1.5); eGFR NON BLACK RACES 24 (>60)
[2020-01-21 17:07] LABS: CREATINE KINASE MB 4.1 ng/mL (0-4.0)
[2020-01-21] MEDS ORDERED: PROVENTIL NEB TX 0.083% 2.5MG/ 3ML NEB PRN (17:08)
[2020-01-21 17:22] LABS: BILIRUBIN,URINE NEGATIVE (NEGATIVE); BLOOD/HEMOGLOBIN,URINE NEGATIVE (NEGATIVE); GLUCOSE, URINE NEGATIVE (NEGATIVE); KETONES,URINE NEGATIVE (NEGATIVE); LEUKOCYTE ESTERASE ,URINE NEGATIVE (NEGATIVE); NITRITES,URINE NEGATIVE (NEGATIVE); PROTEIN,URINE 1+ (NEGATIVE); UROBILINOGEN,URINE NORMAL (NORMAL)
[2020-01-21 17:32] LABS: APPEARANCE,URINE CLEAR (CLEAR); BACTERIA,URINE NEGATIVE /HPF (NEGATIVE); COLOR,URINE YELLOW (YELLOW); RBC,URINE NONE SEEN /HPF (0-3); SQUAMOUS EPITHELIAL CELL,UR NEGATIVE /HPF (NEGATIVE)
[2020-01-21 18:15] VITALS: BMI 31.8
[2020-01-21] MEDS: RESTORIL CAP 15 MG PO PRN (22:02)
[2020-01-21 22:58] LABS: CKMB % 1.8 % (<4); CREATINE KINASE 213 Units/L (39-308); CREATINE KINASE MB 3.8 ng/mL (0-4.0); TROPONIN I < 0.02 ng/mL (0-1.5)
[2020-01-22] MEDS: NS 1000 ML 1,000 ML IV SCH ×6 (03:45→20:43)
[2020-01-22 04:11] LABS: BASOPHILS # (AUTO) 0.1 X10^3/uL (0.0-0.1); EOSINOPHILS # (AUTO) 0.1 x10^3/uL (0.0-0.2); EOSINOPHILS % (AUTO) 1.6 % (0.9-2.9); HEMATOCRIT 35.8 % (42.0-54.0); HEMOGLOBIN 12.5 g/dL (13.5-18.0); LYMPHOCYTES # (AUTO) 1.6 X10^3/uL (1.3-2.9); LYMPHOCYTES % (AUTO) 23.4 % (21.0-51.0); MEAN CORPUSCULAR HEMOGLOBIN 31.6 pg (27.0-34.0); MEAN CORPUSCULAR HGB CONC 34.7 g/dL (33.0-35.0); MEAN CORPUSCULAR VOLUME 90.9 fL (80.0-100.0); MEAN PLATELET VOLUME 8.2 fL (7.4-11.0); MONOCYTES # (AUTO) 0.9 x10^3/uL (0.3-0.8); MONOCYTES % (AUTO) 13.9 % (0.0-13.0); NEUTROPHILS % (AUTO) 60.1 % (42.0-75.0); PLATELET COUNT 345 X10^3/uL (150.0-450.0); RED BLOOD COUNT 3.94 X10^6/uL (4.7-6.0); RED CELL DISTRIBUTION WIDTH 12.6 % (11.6-16.5); WHITE BLOOD COUNT 6.7 X10^3/uL (3.6-10.0)
[2020-01-22 04:45] LABS: ALANINE AMINOTRANSFERASE 30 Units/L (12-78); ALBUMIN 2.8 g/dL (3.4-5.0); ALKALINE PHOSPHATASE 47 Units/L (46-116); ASPARTATE AMINO TRANSFERASE 27 Units/L (15-37); BLOOD UREA NITROGEN 71 mg/dL (7-18); CALCIUM 8.1 mg/dL (8.5-10.1); CARBON DIOXIDE 24.1 mmol/L (21-32); CHLORIDE 100 mmol/L (98-107); CKMB % 1.7 % (<4); COR CA(FOR HYPOALB) 9.1 mg/dL (8.5-10.1); COR NA(FOR HYPERGLY) 135 mmol/L (136-145); CREATINE KINASE 197 Units/L (39-308); CREATINE KINASE MB 3.4 ng/mL (0-4.0); SODIUM 134 mmol/L (136-145); TOTAL PROTEIN 7.2 g/dL (6.4-8.2); TROPONIN I < 0.02 ng/mL (0-1.5); eGFR NON BLACK RACES 36 (>60)
--- NOTE | 2020-01-22 11:37 | DR.H&P ---
H&P History & Physical for Day of: H&P Date: 01/22/20 Chief Complaint Chief Complaint: Dehydration Allergies Allergies Allergy/AdvReac Type Severity Reaction Status Date / Time No Known Drug Allergies Allergy Verified 01/21/20 15:06 History of Present Illness History of Present Illness: Pt is a 59 yo m presenting after being hypotensive and having abnormal labs at his primary care in [place], [place]. Pt reports that he usually takes Benicar/HCTZ for blood pressure and has noticed that at times his blood pressure is down to 80-90s systolic and sometimes lower. In clinic he had a Cr that was around 3 and was then directly admitted for acute renal failure/dehydration. Initial labs:Wbc 8.3>6.7, Hgb 13.9>12.5, Plt 312>345, Na 131>134, Cr:2.83>2.0. CXR negative, Troponin negative x3. He is currently on IVF, holding nephrotoxic agents/medications. Continue to monitor and follow up labs in morning. Past Medical History Past Medical History: Anxiety, Depression, Dyslipidemia and Hypertension Additional Medical History: Hyperlipidemia Past Surgical History Surgical History: Ortho Surgery Additional Surgical History: Right knee, Left shoulder and Neck surgery Family History Family Medical History: Cancer and [place] Social History Does patient currently use any type of tobacco product: Yes Have you used tobacco products in the last 12 months: Yes Type of Tobacco Use: Cigarettes How many years tobacco product used: 50 Does any household member use tobacco: No Alcohol Use: DAILY Medications Home Medications: No Known Drug Allergies Allergy (Verified 01/21/20 15:06) Labs Result Diagrams: 01/22/20 03:59 01/22/20 03:59 Labs: 01/21/20 20:30 Sputum - Expectorated Sputum - Final Laboratory WBC 6.7 X10^3/uL (3.6-10.0) 01/22/20 03:59 RBC 3.94 X10^6/uL (4.7-6.0) L 01/22/20 03:59 Hgb 12.5 g/dL (13.5-18.0) L 01/22/20 03:59 Hct 35.8 % (42.0-54.0) L 01/22/20 03:59 MCV 90.9 fL (80.0-100.0) 01/22/20 03:59 MCH 31.6 pg (27.0-34.0) 01/22/20 03:59 MCHC 34.7 g/dL (33.0-35.0) 01/22/20 03:59 RDW 12.6 % (11.6-16.5) 01/22/20 03:59 Plt Count 345 X10^3/uL (150.0-450.0) 01/22/20 03:59 MPV 8.2 fL (7.4-11.0) 01/22/20 03:59 Neut % (Auto) 60.1 % (42.0-75.0) 01/22/20 03:59 Lymph % (Auto) 23.4 % (21.0-51.0) 01/22/20 03:59 [place] % (Auto) 13.9 % (0.0-13.0) H 01/22/20 03:59 Eos % (Auto) 1.6 % (0.9-2.9) 01/22/20 03:59 Baso % (Auto) 1.0 % (0.2-1.0) 01/22/20 03:59 Neut # (Auto) 4.0 x10^3/uL (2.2-4.8) 01/22/20 03:59 Lymph # (Auto) 1.6 X10^3/uL (1.3-2.9) 01/22/20 03:59 [place] # (Auto) 0.9 x10^3/uL (0.3-0.8) H 01/22/20 03:59 Eos # (Auto) 0.1 x10^3/uL (0.0-0.2) 01/22/20 03:59 Baso # (Auto) 0.1 X10^3/uL (0.0-0.1) 01/22/20 03:59 Absolute Nucleated RBC 0.0 /100WBC 01/22/20 03:59 Sodium 134 mmol/L (136-145) L 01/22/20 03:59 Corrected Sodium 135 mmol/L (136-145) L 01/22/20 03:59 Potassium 4.1 mmol/L (3.5-5.1) 01/22/20 03:59 Chloride 100 mmol/L (98-107) 01/22/20 03:59 Carbon Dioxide 24.1 mmol/L (21-32) 01/22/20 03:59 BUN 71 mg/dL (7-18) H 01/22/20 03:59 Creatinine 2.00 mg/dL (0.70-1.30) H 01/22/20 03:59 Est GFR (MDRD) Af Amer 44 (>60) L 01/22/20 03:59 Est GFR (MDRD) Non-Af 36 (>60) L 01/22/20 03:59 Glucose 134 mg/dL (65-99) H 01/22/20 03:59 Calcium 8.1 mg/dL (8.5-10.1) L 01/22/20 03:59 Corrected Calcium 9.1 mg/dL (8.5-10.1) 01/22/20 03:59 Magnesium 1.8 mg/dL (1.7-2.9) 01/21/20 15:23 Total Bilirubin 0.50 mg/dL (0.2-1.0) 01/22/20 03:59 AST 27 Units/L (15-37) 01/22/20 03:59 ALT 30 Units/L (12-78) 01/22/20 03:59 Alkaline Phosphatase 47 Units/L (46-116) 01/22/20 03:59 Creatine Kinase 197 Units/L (39-308) 01/22/20 03:59 CK-MB (CK-2) 3.4 ng/mL (0-4.0) 01/22/20 03:59 CK/CKMB % Calc 1.7 % (<4) 01/22/20 03:59 Troponin I < 0.02 ng/mL (0-1.5) 01/22/20 03:59 Total Protein 7.2 g/dL (6.4-8.2) 01/22/20 03:59 Albumin 2.8 g/dL (3.4-5.0) L 01/22/20 03:59 Globulin 4.4 g/dL (2.5-4.5) 01/22/20 03:59 Albumin/Globulin Ratio 0.6 Ratio (1.1-2.1) L 01/22/20 03:59 Specimen Type Clean catch urine 01/21/20 17:00 Urine Color Yellow (YELLOW) 01/21/20 17:00 Urine Appearance Clear (CLEAR) 01/21/20 17:00 Urine pH 5.0 (5.0 - 8.0) 01/21/20 17:00 Ur Specific [place] 1.015 (1.000-1.030) 01/21/20 17:00 Urine Protein 1+ (NEGATIVE) 01/21/20 17:00 Urine Glucose (UA) Negative (NEGATIVE) 01/21/20 17:00 Urine Ketones Negative (NEGATIVE) 01/21/20 17:00 Urine Occult Blood Negative (NEGATIVE) 01/21/20 17:00 Urine Nitrite Negative (NEGATIVE) 01/21/20 17:00 Urine Bilirubin Negative (NEGATIVE) 01/21/20 17:00 Urine Urobilinogen Normal (NORMAL) 01/21/20 17:00 Ur Leukocyte Esterase Negative (NEGATIVE) 01/21/20 17:00 Urine RBC None seen /HPF (0-3) 01/21/20 17:00 Urine WBC None seen /HPF (0-5) 01/21/20 17:00 Ur Squamous Epith Cells Negative /HPF (NEGATIVE) 01/21/20 17:00 Urine Bacteria Negative /HPF (NEGATIVE) 01/21/20 17:00 Ur Culture Indicated? No/not indicated 01/21/20 17:00 Review of Systems Constitutional: denies Fever and Chills Eyes: No Symptoms Reported ENT: No Symptoms Reported Respiratory: Shortness of Breath Cardiovascular: No Symptoms Reported Gastrointestinal: No Symptoms Reported Genitourinary: No Symptoms Reported Musculoskeletal: No Symptoms Reported Skin: No Symptoms Reported Neurological: No Symptoms Reported Physical Exam Vital Signs: Temperature 97.6 F Pulse Rate [Left Brachial] 97 Pulse Rate 95 Respiratory Rate 22 Blood Pressure [Left Arm] 106/56 Blood Pressure 101/61 O2 Sat by Pulse Oximetry 96 Oriented: Normal Eyes: Normal Ear: Normal Nose: Normal Respiratory: Clear Throughout Cardiovascular: Normal : Normal Auscultation: Bowel Sounds: Normal Palpation: Normal Tenderness: Normal Skin: Normal Musculoskeletal: Normal Psychiatric: Normal Mood Description: Calm Speech Pattern: Clear Assessment/Plan (1) Acute renal failure: Status: Acute Plan: Improving renal function:Cr:2.83>2.0. Continue IVF, hold nephrotoxic agents/medications. (2) Dehydration: Status: Acute (3) Hypertension: Status: Acute Plan: Holding Benicar/HCTZ. Continue to monitor BP. Review H&P Reviewed: Yes Patient was examined?: Yes
[2020-01-22] MEDS: RESTORIL CAP 15 MG PO PRN (20:44)
[2020-01-23] MEDS: NS 1000 ML 1,000 ML IV SCH (05:07)
[2020-01-23 06:34] LABS: BLOOD UREA NITROGEN 32 mg/dL (7-18); CALCIUM 7.7 mg/dL (8.5-10.1); CARBON DIOXIDE 23.8 mmol/L (21-32); CHLORIDE 104 mmol/L (98-107); COR NA(FOR HYPERGLY) 138 mmol/L (136-145); CREATININE 1.36 mg/dL (0.70-1.30); SODIUM 137 mmol/L (136-145); eGFR NON BLACK RACES 57 (>60)
[2020-01-23 06:45] LABS: BASOPHILS # (AUTO) 0.1 X10^3/uL (0.0-0.1); BASOPHILS % (AUTO) 1.1 % (0.2-1.0); EOSINOPHILS # (AUTO) 0.1 x10^3/uL (0.0-0.2); EOSINOPHILS % (AUTO) 1.6 % (0.9-2.9); HEMATOCRIT 31.6 % (42.0-54.0); HEMOGLOBIN 11.1 g/dL (13.5-18.0); LYMPHOCYTES # (AUTO) 1.5 X10^3/uL (1.3-2.9); LYMPHOCYTES % (AUTO) 24.4 % (21.0-51.0); MEAN CORPUSCULAR HEMOGLOBIN 32.3 pg (27.0-34.0); MEAN CORPUSCULAR HGB CONC 35.2 g/dL (33.0-35.0); MEAN CORPUSCULAR VOLUME 91.8 fL (80.0-100.0); MEAN PLATELET VOLUME 8.5 fL (7.4-11.0); MONOCYTES # (AUTO) 0.8 x10^3/uL (0.3-0.8); MONOCYTES % (AUTO) 12.1 % (0.0-13.0); NEUTROPHILS # (AUTO) 3.8 x10^3/uL (2.2-4.8); NEUTROPHILS % (AUTO) 60.8 % (42.0-75.0); PLATELET COUNT 323 X10^3/uL (150.0-450.0); RED BLOOD COUNT 3.45 X10^6/uL (4.7-6.0); RED CELL DISTRIBUTION WIDTH 12.3 % (11.6-16.5); WHITE BLOOD COUNT 6.2 X10^3/uL (3.6-10.0)
--- NOTE | 2020-01-23 10:59 | W.DIS.FURT ---
Summary of Discharge Discharge Summary of Date Date of Exam: 01/23/20 Admission Date Date of Admission: 01/21/20 Admission Diagnosis Hospital Course: Pt is a 59 yo m admitted for acute renal failure/dehydration after being hypotensive and having abnormal labs at his primary care in [place], [place]. Pt reports that he usually takes Benicar/HCTZ for blood pressure and has noticed that at times his blood pressure is down to 80-90s systolic and sometimes lower. In clinic he had a Cr that was around 3 and was then directly admitted. He was started on IVF and nephrotoxic agents held. Pt's blood pressure remained stable without antihypertensive medications. Renal function improved Cr: 2.83 > 2.0 > 1.36. Instructed to keep hydrated, stop blood pressure medication, check BP at home to bring to his pcp to re-evaluate if medication necessary. Pt discharged in stable condition to follow up w/ pcp in 1 week. Vital Signs: Vital Signs (72 hours) 01/21/20 15:06 01/21/20 16:15 01/21/20 20:00 Temperature 98.5 F 97.7 F Pulse Rate Pulse Rate [Left Brachial] 105 H 106 H Respiratory Rate 20 18 Blood Pressure 101/61 Blood Pressure [Left Arm] 110/63 109/64 O2 Sat by Pulse Oximetry 98 01/21/20 20:30 01/21/20 23:58 01/22/20 04:00 Temperature 97.8 F 97.6 F Pulse Rate 95 H Pulse Rate [Left Brachial] 106 H 97 H Respiratory Rate 24 22 Blood Pressure Blood Pressure [Left Arm] 98/55 106/56 O2 Sat by Pulse Oximetry 98 98 96 01/22/20 08:00 01/22/20 12:00 01/22/20 16:00 Temperature 98.4 F 98.1 F 98.2 F Pulse Rate Pulse Rate [Left Brachial] 106 H 99 H 106 H Respiratory Rate 20 20 20 Blood Pressure Blood Pressure [Left Arm] 115/58 106/63 119/80 O2 Sat by Pulse Oximetry 96 94 L 93 L 01/22/20 20:00 01/22/20 20:20 01/22/20 23:44 Temperature 98.2 F 98.7 F Pulse Rate 101 H Pulse Rate [Left Brachial] 100 H 100 H Respiratory Rate 16 20 Blood Pressure Blood Pressure [Left Arm] 152/77 111/65 O2 Sat by Pulse Oximetry 98 96 95 01/23/20 04:00 Temperature 97.6 F Pulse Rate Pulse Rate [Left Brachial] 101 H Respiratory Rate 18 Blood Pressure Blood Pressure [Left Arm] 110/64 O2 Sat by Pulse Oximetry 97 Labs: Laboratory Last Values WBC 6.2 X10^3/uL (3.6-10.0) 01/23/20 05:33 RBC 3.45 X10^6/uL (4.7-6.0) L 01/23/20 05:33 Hgb 11.1 g/dL (13.5-18.0) L 01/23/20 05:33 Hct 31.6 % (42.0-54.0) L 01/23/20 05:33 MCV 91.8 fL (80.0-100.0) 01/23/20 05:33 MCH 32.3 pg (27.0-34.0) 01/23/20 05:33 MCHC 35.2 g/dL (33.0-35.0) H 01/23/20 05:33 RDW 12.3 % (11.6-16.5) 01/23/20 05:33 Plt Count 323 X10^3/uL (150.0-450.0) 01/23/20 05:33 MPV 8.5 fL (7.4-11.0) 01/23/20 05:33 Neut % (Auto) 60.8 % (42.0-75.0) 01/23/20 05:33 Lymph % (Auto) 24.4 % (21.0-51.0) 01/23/20 05:33 [place] % (Auto) 12.1 % (0.0-13.0) 01/23/20 05:33 Eos % (Auto) 1.6 % (0.9-2.9) 01/23/20 05:33 Baso % (Auto) 1.1 % (0.2-1.0) H 01/23/20 05:33 Neut # (Auto) 3.8 x10^3/uL (2.2-4.8) 01/23/20 05:33 Lymph # (Auto) 1.5 X10^3/uL (1.3-2.9) 01/23/20 05:33 [place] # (Auto) 0.8 x10^3/uL (0.3-0.8) 01/23/20 05:33 Eos # (Auto) 0.1 x10^3/uL (0.0-0.2) 01/23/20 05:33 Baso # (Auto) 0.1 X10^3/uL (0.0-0.1) 01/23/20 05:33 Absolute Nucleated RBC 0.0 /100WBC 01/23/20 05:33 Sodium 137 mmol/L (136-145) 01/23/20 05:33 Corrected Sodium 138 mmol/L (136-145) 01/23/20 05:33 Potassium 4.0 mmol/L (3.5-5.1) 01/23/20 05:33 Chloride 104 mmol/L (98-107) 01/23/20 05:33 Carbon Dioxide 23.8 mmol/L (21-32) 01/23/20 05:33 BUN 32 mg/dL (7-18) H 01/23/20 05:33 Creatinine 1.36 mg/dL (0.70-1.30) H 01/23/20 05:33 Est GFR (MDRD) Af Amer > 60 (>60) 01/23/20 05:33 Est GFR (MDRD) Non-Af 57 (>60) L 01/23/20 05:33 Glucose 135 mg/dL (65-99) H 01/23/20 05:33 Calcium 7.7 mg/dL (8.5-10.1) L 01/23/20 05:33 Corrected Calcium 9.1 mg/dL (8.5-10.1) 01/22/20 03:59 Magnesium 1.8 mg/dL (1.7-2.9) 01/21/20 15:23 Total Bilirubin 0.50 mg/dL (0.2-1.0) 01/22/20 03:59 AST 27 Units/L (15-37) 01/22/20 03:59 ALT 30 Units/L (12-78) 01/22/20 03:59 Alkaline Phosphatase 47 Units/L (46-116) 01/22/20 03:59 Creatine Kinase 197 Units/L (39-308) 01/22/20 03:59 CK-MB (CK-2) 3.4 ng/mL (0-4.0) 01/22/20 03:59 CK/CKMB % Calc 1.7 % (<4) 01/22/20 03:59 Troponin I < 0.02 ng/mL (0-1.5) 01/22/20 03:59 Total Protein 7.2 g/dL (6.4-8.2) 01/22/20 03:59 Albumin 2.8 g/dL (3.4-5.0) L 01/22/20 03:59 Globulin 4.4 g/dL (2.5-4.5) 01/22/20 03:59 Albumin/Globulin Ratio 0.6 Ratio (1.1-2.1) L 01/22/20 03:59 Specimen Type Clean catch urine 01/21/20 17:00 Urine Color Yellow (YELLOW) 01/21/20 17:00 Urine Appearance Clear (CLEAR) 01/21/20 17:00 Urine pH 5.0 (5.0 - 8.0) 01/21/20 17:00 Ur Specific [place] 1.015 (1.000-1.030) 01/21/20 17:00 Urine Protein 1+ (NEGATIVE) 01/21/20 17:00 Urine Glucose (UA) Negative (NEGATIVE) 01/21/20 17:00 Urine Ketones Negative (NEGATIVE) 01/21/20 17:00 Urine Occult Blood Negative (NEGATIVE) 01/21/20 17:00 Urine Nitrite Negative (NEGATIVE) 01/21/20 17:00 Urine Bilirubin Negative (NEGATIVE) 01/21/20 17:00 Urine Urobilinogen Normal (NORMAL) 01/21/20 17:00 Ur Leukocyte Esterase Negative (NEGATIVE) 01/21/20 17:00 Urine RBC None seen /HPF (0-3) 01/21/20 17:00 Urine WBC None seen /HPF (0-5) 01/21/20 17:00 Ur Squamous Epith Cells Negative /HPF (NEGATIVE) 01/21/20 17:00 Urine Bacteria Negative /HPF (NEGATIVE) 01/21/20 17:00 Ur Culture Indicated? No/not indicated 01/21/20 17:00 Reason For Visit: SHORT OF BREATH UPON EXCERATIONS, ELEVATED BLOOD Discharge Date Discharge Date: 01/23/20 Discharge Diagnosis All Active Problems (Updated 01/22/20 @ 11:38 by Jus Smith) Hypertension (Acute) Dehydration (Acute) Acute renal failure (Acute) Abdominal pain (Acute) GI bleed (Acute) Plan of Treatment: Continue with present treatment and follow up plan. Pt is to keep follow up kyle ointment as instructed and take medications as ordered. Discharge Medications Discharge Medications: No Known Drug Allergies Allergy (Verified 01/21/20 15:06) Follow up and Referral Follow Up: 1 Week Discharge Disposition Discharge Disposition: Home Discharge Condition: Stable
[2020-01-23 11:46] VITALS: BP 128/73
== END 2020-01-23 11:20 | disposition home or self-care (01) ==
LOC: MED/SURG
PROVIDERS: ADMIT Family Medicine; ATTEND Family Medicine
DX: E86.0 Dehydration; R06.02 Shortness of breath; I10 Essential (primary) hypertension; F41.8 Other specified anxiety disorders; I95.89 Other hypotension; E78.2 Mixed hyperlipidemia; R94.4 Abnormal results of kidney function studies; Z79.899 Other long term (current) drug therapy; N17.8 Other acute kidney failure
CPT/HCPCS: 36415; 80048; 80053; 81001; 82550; 82553; 83735; 84484; 85025; 87070; 87205; 93005; 94760; 96360; 96361; A4222; G0378; J7030